=== PATIENT | male | born 1995 | race Caucasian/White ===

== ENCOUNTER 2022-02-25 08:49 | Emergency (ER) | payer BC ==
[2022-02-25] MEDS ORDERED: Diphtheria,Pertussis(Acell),Tetanus Vaccine 0.5 ML Syringe IM ONE (09:18)
[2022-02-25] MEDS ORDERED: Lidocaine 1% 10 ML MDV INJECT ONE (09:19)
== END 2022-02-25 10:55 | disposition home or self-care (01) ==
LOC: JD.ED 08:49
DX: S61.012A Laceration without foreign body of left thumb without damage to nail, initial encounter (principal); S61.211A Laceration without foreign body of left index finger without damage to nail, initial encounter; Z23 Encounter for immunization; Z79.899 Other long term (current) drug therapy; W26.8XXA Contact with other sharp object(s), not elsewhere classified, initial encounter
CPT/HCPCS: 12002; 73130-26-LT; 73130-LT; 90471; 90715; 99283-25